=== PATIENT | male | born 1960 | race Caucasian/White ===

== ENCOUNTER 2018-10-06 11:19 | Emergency (ER) | payer BC ==
[2018-10-06] MEDS ORDERED: Albuterol/Ipratropium 3.0-0.5 MG/3 ML Neb Soln NEB ONE ×2 (11:25→11:47)
[2018-10-06] MEDS ORDERED: methylPREDNISolone Sodium Succinate 125 MG/2 ML SDV IM ONE (11:48)
--- NOTE | 2018-10-06 11:55 | EDM.PDOC ---
ED HPI GENERAL MEDICAL PROBLEM - General Chief Complaint: Respiratory Problem Stated Complaint: COUGH TROUBLE BREATHING Time Seen by Provider: 10/06/18 11:47 Source of Information: Reports: Patient History Limitations: Reports: No Limitations - History of Present Illness INITIAL COMMENTS - FREE TEXT/NARRATIVE: HISTORY AND PHYSICAL: History of present illness: Patient is a 58-year-old male who presents to the emergency room today with complaints of shortness of breath and cough 1 week. He states he has been using some leftover prednisone over the past 5 days along with his prescribed inhalers without any relief. Does have a long-standing history of asthma and does take inhalers several times per day. He denies any fever, chills, chest pain or diaphoresis. Denies any GI or symptoms. States he has been eating and drinking appropriately. Review of systems: As per history of present illness and below otherwise all systems reviewed and negative. Past medical history: As per history of present illness and as reviewed below otherwise noncontributory. Surgical history: As per history of present illness and as reviewed below otherwise noncontributory. Social history: See social history for further information Family history: As per history of present illness and as reviewed below otherwise noncontributory. Physical exam: General: Well-developed and well-nourished 58-year-old male. Alert and oriented. Nontoxic appearing and in no acute distress. HEENT: Atraumatic, normocephalic, pupils equal and reactive bilaterally, negative for conjunctival pallor or scleral icterus, mucous membranes moist, TMs normal bilaterally, throat clear, neck supple, nontender, trachea midline. No drooling or trismus noted. No meningeal signs. No hot potato voice noted. Lungs: Poor air exchange throughout with expiratory wheezing, breath sounds equal bilaterally, chest nontender. Heart: S1S2, regular rate and rhythm without overt murmur Abdomen: Soft, nondistended, nontender. Negative for masses or hepatosplenomegaly. Negative for costovertebral tenderness. Pelvis: Stable nontender. Genitourinary: Deferred. Rectal: Deferred. Skin: Intact, warm, dry. No lesions or rashes noted. Extremities: Atraumatic, moves all extremities per self without difficulty or deficits, negative for cords or calf pain. Neurovascular unremarkable. Neuro: Awake, alert, oriented. Cranial nerves II through XII unremarkable. Cerebellum unremarkable. Motor and sensory unremarkable throughout. Exam nonfocal. Notes: Improvement in lung sounds after the duo nebs. Chest x-ray shows a mild left basilar and perihilar atelectasis without definitive consolidation. Due to the patient's symptoms and history of chronic as melena treat her as a pneumonia. Patient states he will follow closely with his primary care provider. Supportive care measures were reviewed and discussed. Voices understanding and is agreeable to plan of care. Denies any further questions or concerns at this time. Diagnostics: CXR Therapeutics: Duo Neb x 2, Solu-Medrol IM, Rocephin Prescription: Medrol Dosepak Levaquin Impression: Atypical Pneumonia Plan: 1. Please take your medications as directed. 2. Your primary care provider as we discussed. Return to the ED as needed and as discussed. Definitive disposition and diagnosis as appropriate pending reevaluation and review of above. - Related Data Allergies Allergy/AdvReac Type Severity Reaction Status Date / Time No Known Allergies Allergy Verified 10/06/18 12:02 Home Meds: Home Meds . [Unable to Verify Home Med List] 10/06/18 [History] ED ROS GENERAL - Review of Systems Review Of Systems: ROS reveals no pertinent complaints other than HPI. ED EXAM, GENERAL - Physical Exam Exam: See Below (See dictation) Course - Vital Signs Last Recorded V/S: Last Vital Signs Temp 97.8 F 10/06/18 12:00 Pulse 86 10/06/18 12:00 Resp 18 10/06/18 12:00 BP 147/79 H 10/06/18 12:00 Pulse Ox 95 10/06/18 12:00 - Orders/Labs/Meds Orders: Active Orders 24 hr Category Date Time Status RT Aerosol Therapy [RC] ASDIRECTED Care 10/06/18 11:25 Active RT Aerosol Therapy [RC] ASDIRECTED Care 10/06/18 11:47 Active Meds: Medications Discontinued Medications Generic Name Dose Route Start Last Admin Trade Name Freq PRN Reason Stop Dose Admin Albuterol/Ipratropium 3 ml 10/06/18 11:25 10/06/18 11:42 Duoneb 3.0-0.5 Mg/3 Ml NEB 10/06/18 11:26 3 ml ONETIME ONE Administration Albuterol/Ipratropium 3 ml 10/06/18 11:47 10/06/18 11:50 Duoneb 3.0-0.5 Mg/3 Ml NEB 10/06/18 11:48 3 ml ONETIME ONE Administration Ceftriaxone Sodium 1 gm/ 4 mls @ 4 mls/sec 10/06/18 11:59 10/06/18 12:09 Lidocaine HCl IM 10/06/18 12:00 4 mls/sec ONETIME ONE Administration Methylprednisolone Sodium Succinate 125 mg 10/06/18 11:48 10/06/18 12:09 Solu-Medrol IM 10/06/18 11:49 125 mg ONETIME ONE Administration Departure - Departure Time of Disposition: 12:21 Disposition: Home, Self-Care 01 Clinical Impression: Pneumonia Qualifiers: Pneumonia type: due to unspecified organism Laterality: left Lung location: lower lobe of lung Qualified Code(s): J18.1 - Lobar pneumonia, unspecified organism - Discharge Information Instructions: Community-Acquired Pneumonia, Adult, [id number] Referrals: PCP,Unknown [Primary Care Provider] - Forms: ED Department Discharge Additional Instructions: The following information is given to patients seen in the emergency department who are being discharged to home. This information is to outline your options for follow-up care. We provide all patients seen in our emergency department with a follow-up referral. The need for follow-up, as well as the timing and circumstances, are variable depending upon the specifics of your emergency department visit. If you don't have a primary care physician on staff, we will provide you with a referral. We always advise you to contact your personal physician following an emergency department visit to inform them of the circumstance of the visit and for follow-up with them and/or the need for any referrals to a consulting specialist. The emergency department will also refer you to a specialist when appropriate. This referral assures that you have the opportunity for follow-up care with a specialist. All of these measure are taken in an effort to provide you with optimal care, which includes your follow-up. Under all circumstances we always encourage you to contact your private physician who remains a resource for coordinating your care. When calling for follow-up care, please make the office aware that this follow-up is from your recent emergency room visit. If for any reason you are refused follow-up, please contact the [facility] Emergency Department at and asked to speak to the emergency department charge nurse. [facility] [address] [place] [address] [facility] [address] [place] [address] 1. Please take your medications as directed. 2. Your primary care provider as we discussed. Return to the ED as needed and as discussed. - My Orders Last 24 Hours: My Active Orders 10/06/18 11:25 RT Aerosol Therapy [RC] ASDIRECTED 10/06/18 11:47 RT Aerosol Therapy [RC] ASDIRECTED - Assessment/Plan Last 24 Hours: My Active Orders 10/06/18 11:25 RT Aerosol Therapy [RC] ASDIRECTED 10/06/18 11:47 RT Aerosol Therapy [RC] ASDIRECTED
[2018-10-06] MEDS ORDERED: cefTRIAXone 1 GM in Lidocaine 1% 4 ML IM ONE (11:59)
--- NOTE | 2018-10-06 12:19 | CR ---
EXAMINATION: Two-view chest (PA and Lateral views). HISTORY: Shortness of breath. FINDINGS: The trachea is midline. The cardiomediastinal silhouette is within normal limits. No pulmonary infiltrates, effusions or pneumothorax. Mild left perihilar atelectasis and basilar atelectasis. Osseous structures appear unremarkable. IMPRESSION: Mild left basilar and perihilar atelectasis without a definite consolidation.
== END 2018-10-06 12:35 | disposition home or self-care (01) ==
LOC: MW.ED 11:19
DX: J18.1 Lobar pneumonia, unspecified organism (principal)
CPT/HCPCS: 71046; 94640; 96372; 99285; J0696; J2001; J2930; J7620-GY

== ENCOUNTER 2020-05-07 16:52 | Emergency (ER) | payer BC ==
--- NOTE | 2020-05-07 18:02 | EDM.PDOC ---
<Angelo Titus - Last Filed: 05/07/20 19:08> ED HPI GENERAL MEDICAL PROBLEM - General Chief Complaint: Respiratory Problem Stated Complaint: ASTHMATIC, TROUBLE BREATHING, COVID Time Seen by Provider: 05/07/20 16:53 Source of Information: Reports: Patient, Old Records History Limitations: Reports: No Limitations - History of Present Illness INITIAL COMMENTS - FREE TEXT/NARRATIVE: 59-year-old male with a past medical history of asthma, a provoked PE, hypertension presenting with infectious symptoms. He states that approximately 12 days ago, he tested positive for COVID-19. Since then, he has continued to feel unwell and run fevers. Today he had a T-max of 100.4. He complains of gradually worsening shortness of breath over about the past 36 hours. He was concerned that it was getting harder to breathe so he decided to come to the emergency department. He is concerned that he may be having an asthma exacerbation or he may have pneumonia. He denies any chest pain, pleuritic chest pain, sore throat, difficulty speaking or swallowing, difficulty in secretions, abdominal pain, dysuria, hematemesis, bloody stools, rash, lower extremity edema. Patient denies lower extremity pain or swelling, hemoptysis, recent surgery or immobilization or long travel, history of active malignancy, or hormonal medication/product usage. ROS: A 10-point review of systems was negative, except as noted in the HPI (or in the ROS section of this note). Past medical history: Reviewed, no additional pertinent history. Surgical history: Reviewed in system, no additional pertinent history. Social history: Reviewed in system, no additional pertinent history. Family history: Reviewed in system, no additional pertinent history. Limited physical examination was performed due to COVID pandemic, distanced physical examination to prevent physician exposure and to preserve PPE. Vital signs reviewed. Nursing notes reviewed. Constitutional: Awake, alert, non-distressed. Head: Normocephalic, atraumatic. Eyes: No scleral icterus. Neck: Able to fully flex and extend. Fully rotates side to side. Cardiovascular: No extremity edema. Pulmonary: normal work of breathing, no accessory muscle use. Speaking in full sentences, handling secretions well. CTA BL. Abdomen/GI: nondistended Musculoskeletal: No deformities. Integumentary: Appropriate color for ethnicity, warm, dry, no pallor or jaundice, no rash. Neurologic: Alert, answering questions appropriately, normal speech, no facial droop, moving all extremities well. Normal voice. Psychiatric: Appropriate mood and affect, normal thought process. This patient was seen and evaluated during the 2019 SARS-CoV-2 novel coronavirus pandemic period. Community viral transmission is ongoing at time of this encounter. - Related Data Allergies Allergy/AdvReac Type Severity Reaction Status Date / Time No Known Allergies Allergy Verified 05/07/20 17:10 Home Meds: Home Meds Amoxicillin/Potassium Clav [Augmentin 875-125 Tablet] 1 each PO BID 7 Days #14 tablet 05/07/20 [Rx] Doxycycline Hyclate 100 mg PO BID 5 Days #10 tablet. 05/07/20 [Rx] Past Medical History Cardiovascular History: Reports: Hypertension Respiratory History: Reports: Asthma - Infectious Disease History Infectious Disease History: Reports: Other (See Below) Other Infectious Disease History: COVID Social & Family History - Family History Family Medical History: Noncontributory - Caffeine Use Caffeine Use: Reports: None - Recreational Drug Use Recreational Drug Use: No ED ROS GENERAL - Review of Systems Review Of Systems: See Below ED EXAM, GENERAL - Physical Exam Exam: See Below #1 Interpretation EKG Interpretation Comments: 12-Lead ECG Interpretation Acquired: 5:59 PM Rhythm: Sinus rhythm Rate: 72 bpm [facility]: Normal Intervals: Normal Ectopy: None RV Strain: No obvious RV strain pattern. ST Segments/T-Waves: No notable changes Acute Ischemic Changes: None apparent Interpretation: No STEMI Course - Vital Signs Text/Narrative:: 59-year-old male, known COVID positive, presenting with fever, cough, feeling unwell, and gradually worsening shortness of breath. Patient hemodynamically stable, afebrile, well-appearing, looks nontoxic. Differential diagnosis includes but is not limited to: Persistent Covid infection, bacterial pneumonia, asthma exacerbation, less likely pulmonary embolism or acute coronary syndrome, anemia, electrode disturbance, arrhythmia, pleural effusion, etc. 6:00 PM: Normal oxygen saturations, normal heart rate. Speaking in full sen tences without difficulty. Lungs are clear to auscultation. Does not appear to be in an asthma exacerbation. Low suspicion for pneumonia but will obtain a chest x-ray given subjective worsening of dyspnea over the past 36 hours. No evidence of respiratory compromise. No chest discomfort but will obtain twelve- lead EKG and CBC, BMP, troponin. Low suspicion for pulmonary embolism given lack of pleuritic chest pain, he has no chest discomfort and has no lower extremity swelling, tachycardia, hypoxia, etc. Twelve-lead EKG nonischemic, no arrhythmia or ectopy. 6:37 PM: Chest x-ray shows a right lower lobe opacity concerning for pneumonia. Given that patient symptoms seem to have worsened over the past 36 hours, it is possible that he has concomitant community-acquired pneumonia on top of the previously known COVID-19 infection. We are going to prescribe him antibiotics to treat community-acquired pneumonia but continue quarantine precautions for known COVID-19. We are awaiting lab results. 7:08 PM: We are waiting for labs to come back. I am planning to treat the patient for commune acquired pneumonia. Dr. Monique is taking over the case and will follow up on the lab results. Departure - Departure Time of Disposition: 18:34 Disposition: Home, Self-Care 01 Condition: Good Clinical Impression: COVID-19 virus infection Community acquired pneumonia Qualifiers: Laterality: right Lung location: lower lobe of lung Qualified Code(s): J18.9 - Pneumonia, unspecified organism - Discharge Information *PRESCRIPTION DRUG MONITORING PROGRAM REVIEWED*: Not Applicable *COPY OF PRESCRIPTION DRUG MONITORING REPORT IN PATIENT [place]: Not Applicable Prescriptions: Amoxicillin/Potassium Clav [Augmentin 875-125 Tablet] 1 each PO BID 7 Days #14 tablet Doxycycline Hyclate 100 mg PO BID 5 Days #10 tablet. Instructions: COVID-19, COVID-19: How to Protect Yourself and Others - CDC, COVID-19 Frequently Asked Questions, Community-Acquired Pneumonia, Adult Referrals: Wayne Abdul MD [Primary Care Provider] - 1 Week (For follow-up of symptoms.) Forms: ED Department Discharge Additional Instructions: The need for follow-up, as well as the timing and circumstances, are variable depending upon the specifics of your emergency department visit. If you don't have a primary care physician on staff, we will provide you with a referral. We always advise you to contact your personal physician following an emergency department visit to inform them of the circumstance of the visit and for follow-up with them and/or the need for any referrals to a consulting specialist. The emergency department will also refer you to a specialist when appropriate. This referral assures that you have the opportunity for follow-up care with a specialist. All of these measure are taken in an effort to provide you with optimal care, which includes your follow-up. Under all circumstances we always encourage you to contact your private physician who remains a resource for coordinating your care. When calling for follow-up care, please make the office aware that this follow-up is from your recent emergency room visit. If for any reason you are refused follow-up, please contact the [facility] Emergency Department at and asked to speak to the emergency department charge nurse. If you do not have a primary care doctor, please follow up with the clinics below within 3-5 days. [facility] [address] [place] [address] [place] [address] Sepsis Event Note (ED) - Evaluation Sepsis Screening Result: No Definite Risk <Domenic Monique - Last Filed: 05/07/20 21:07> Course - Vital Signs Last Recorded V/S: Last Vital Signs Temp 97.9 F 05/07/20 17:11 Pulse 95 05/07/20 20:29 Resp 21 H 05/07/20 20:29 BP 146/77 H 05/07/20 17:11 Pulse Ox 96 05/07/20 20:29 - Orders/Labs/Meds Orders: Active Orders 24 hr Category Date Time Status Cardiac Monitoring [RC] . DIRECTED Care 05/07/20 19:18 Active EKG Documentation Completion [RC] STAT Care 05/07/20 17:48 Active Pulse Oximetry [RC] ASDIRECTED Care 05/07/20 17:48 Active CULTURE BLOOD [BC] Stat Lab 05/07/20 19:45 Received CULTURE BLOOD [BC] Stat Lab 05/07/20 20:00 Received PROCALCITONIN [REF] Stat Lab 05/07/20 18:45 Received Azithromycin [Zithromax] 500 mg Med 05/07/20 20:45 Active Sodium Chloride 0.9% [Normal Saline (AdvBag)] 250 ml IV ONETIME Blood Culture x2 Reflex Set [OM.PC] Stat Oth 05/07/20 19:23 Ordered Isolation [COMM] Stat Oth 05/07/20 19:18 Active Medication Orders Azithromycin 500 mg/ Sodium (Chloride) 250 mls @ 250 mls/hr IV ONETIME ONE Stop: 05/07/20 21:44 Last Admin: 05/07/20 21:01 Dose: 250 mls/hr Documented by: TERESITA Labs: Laboratory Tests 05/07/20 05/07/20 05/07/20 Range/Units 18:45 18:45 18:45 WBC 9.01 (4.0-11.0) K/uL RBC 4.32 L (4.50-5.90) M/uL Hgb 13.3 (13.0-17.0) g/dL Hct 40.2 (38.0-50.0) % MCV 93.1 (80.0-98.0) fL MCH 30.8 (27.0-32.0) pg MCHC 33.1 (31.0-37.0) g/dL RDW Std Deviation 43.5 (28.0-62.0) fl RDW Coeff of Kenzie 13 (11.0-15.0) % Plt Count 236 (150-400) K/uL MPV 9.40 (7.40-12.00) fL Neut % (Auto) 82.1 H (48.0-80.0) % Lymph % (Auto) 9.8 L (16.0-40.0) % Kleberg % (Auto) 7.9 (0.0-15.0) % Eos % (Auto) 0.0 (0.0-7.0) % Baso % (Auto) 0.2 (0.0-1.5) % Neut # (Auto) 7.4 H (1.4-5.7) K/uL Lymph # (Auto) 0.9 (0.6-2.4) K/uL Kleberg # (Auto) 0.7 (0.0-0.8) K/uL Eos # (Auto) 0.0 (0.0-0.7) K/uL Baso # (Auto) 0.0 (0.0-0.1) K/uL Nucleated RBC % 0.0 /100WBC Nucleated RBCs # 0 K/uL INR D-Dimer, Quantitative 0.45 (0.0-0.50) mg/L FEU Lactate (0.20-2.00) mmol/L Sodium 138 (136-148) mmol/L Potassium 4.9 (3.5-5.1) mmol/L Chloride 103 (98-107) mmol/L Carbon Dioxide 25.7 (21.0-32.0) mmol/L BUN 16 (7.0-18.0) mg/dL Creatinine 1.0 (0.8-1.3) mg/dL Est Cr Clr Drug Dosing 67.48 mL/min Estimated GFR (MDRD) > 60.0 ml/min Glucose 120 H (74-106) mg/dL Calcium 8.5 (8.5-10.1) mg/dL Total Bilirubin (0.2-1.0) mg/dL Direct Bilirubin (0.0-0.5) mg/dL Indirect Bilirubin AST (15-37) IU/L ALT (14-63) IU/L Alkaline Phosphatase (46-116) U/L Lactate Dehydrogenase (81-234) U/L Troponin I < 0.050 (0.000-0.056) ng/mL C-Reactive Protein (0.00-0.90) mg/dL Total Protein (6.4-8.2) g/dL Albumin (3.4-5.0) g/dL Globulin (2.6-4.0) g/dL Albumin/Globulin Ratio (0.9-1.6) 05/07/20 05/07/20 05/07/20 Range/Units 18:45 18:45 18:45 WBC (4.0-11.0) K/uL RBC (4.50-5.90) M/uL Hgb (13.0-17.0) g/dL Hct (38.0-50.0) % MCV (80.0-98.0) fL MCH (27.0-32.0) pg MCHC (31.0-37.0) g/dL RDW Std Deviation (28.0-62.0) fl RDW Coeff of Kenzie (11.0-15.0) % Plt Count (150-400) K/uL MPV (7.40-12.00) fL Neut % (Auto) (48.0-80.0) % Lymph % (Auto) (16.0-40.0) % Kleberg % (Auto) (0.0-15.0) % Eos % (Auto) (0.0-7.0) % Baso % (Auto) (0.0-1.5) % Neut # (Auto) (1.4-5.7) K/uL Lymph # (Auto) (0.6-2.4) K/uL Kleberg # (Auto) (0.0-0.8) K/uL Eos # (Auto) (0.0-0.7) K/uL Baso # (Auto) (0.0-0.1) K/uL Nucleated RBC % /100WBC Nucleated RBCs # K/uL INR 1.00 D-Dimer, Quantitative (0.0-0.50) mg/L FEU Lactate 1.2 (0.20-2.00) mmol/L Sodium (136-148) mmol/L Potassium (3.5-5.1) mmol/L Chloride (98-107) mmol/L Carbon Dioxide (21.0-32.0) mmol/L BUN (7.0-18.0) mg/dL Creatinine (0.8-1.3) mg/dL Est Cr Clr Drug Dosing mL/min Estimated GFR (MDRD) ml/min Glucose (74-106) mg/dL Calcium (8.5-10.1) mg/dL Total Bilirubin 0.4 (0.2-1.0) mg/dL Direct Bilirubin < 0.05 (0.0-0.5) mg/dL Indirect Bilirubin 0.86102 AST 26 (15-37) IU/L ALT 28 (14-63) IU/L Alkaline Phosphatase 32 L (46-116) U/L Lactate Dehydrogenase 274 H (81-234) U/L Troponin I (0.000-0.056) ng/mL C-Reactive Protein 7.10 H (0.00-0.90) mg/dL Total Protein 6.6 (6.4-8.2) g/dL Albumin 3.4 (3.4-5.0) g/dL Globulin 3.2 (2.6-4.0) g/dL Albumin/Globulin Ratio 1.1 (0.9-1.6) Meds: Medications Generic Name Dose Route Start Last Admin Trade Name Freq PRN Reason Stop Dose Admin Azithromycin 500 mg/ Sodium 250 mls @ 250 mls/hr 05/07/20 20:45 05/07/20 21:01 Chloride IV 05/07/20 21:44 250 mls/hr ONETIME ONE Administration Discontinued Medications Generic Name Dose Route Start Last Admin Trade Name Freq PRN Reason Stop Dose Admin Ceftriaxone Sodium 1 gm 05/07/20 19:22 05/07/20 20:50 Rocephin IVPUSH 05/07/20 19:23 Not Given ONETIME ONE Ceftriaxone Sodium/Dextrose Confirm 05/07/20 19:28 05/07/20 20:50 Rocephin In Dextrose,Iso-Osm 1 Gm/50 Ml Administered 05/07/20 19:29 Not Given Dose 50 mls @ as directed .ROUTE .STK-MED ONE Ceftriaxone Sodium/Dextrose 1 50 mls @ 100 mls/hr 05/07/20 19:29 05/07/20 20:58 gm/ Premix IV 05/07/20 19:58 100 mls/hr ONETIME ONE Administration - Re-Assessments/Exams Free Text/Narrative Re-Assessment/Exam: 05/07/20 1900 This patient was signed out to me from Dr. Titus at this time. I promptly performed a detailed physical examination, my examination was performed after ED treatments were initiated by the signout provider. Patient has been under the care of the previous provider up until this point. After prolonged observation in the ER, the patient improved and is currently stable for discharge. I performed a repeat exam and did not appreciate new abnor mal findings. Patient pulse ox was 96% on RA with ambulation. I advised the patient to return to the ER for reevaluation if symptoms worsened, including fever, worsening pain, or any other worrisome symptoms. I instructed the patient to follow up with their PCP within 2-3 days. MEDICAL DECISION MAKING: I reviewed the patients past medical records, lab and radiographic findings. I discussed the case with the patient. My differential diagnosis included: PE, PNA, COVID. This patient was evaluated for the symptoms described in the history of present illness. They were evaluated in the context of the global COVID-19 pandemic, which necessitated consideration that the patient might be at risk for infection with the SARS-CoV-2 virus that causes COVID-19. Institutional protocols and algorithms that pertain to the evaluation of patients at risk for COVID-19 are in a state of rapid change based on information released by regulatory bodies including the CDC and federal and state organizations. These policies and algorithms were followed during the patient's care. I wore full PPE, N95, face shield, gown and gloves throughout my evaluation and care of this patient. I recommended home isolation. given home isolation instructions. Patient was in no respiratory distress, not hypoxic, otherwise well appearing, amendable for outpatient treatment. I instructed patient to return immediately for worsening symptoms, sob, chest pain, lightheadedness or other concerns. Patient voiced understanding and questions answered. Sepsis Event Note (ED) - Focused Exam Vital Signs: Vital Signs Temp Pulse Resp BP Pulse Ox 05/07/20 20:29 95 21 H 96 05/07/20 17:11 97.9 F 80 20 146/77 H 96 - My Orders Last 24 Hours: My Active Orders 05/07/20 18:45 PROCALCITONIN [REF] Stat 05/07/20 19:18 Cardiac Monitoring [RC] . DIRECTED Isolation [COMM] Stat 05/07/20 19:23 Blood Culture x2 Reflex Set [OM.PC] Stat 05/07/20 19:45 CULTURE BLOOD [BC] Stat 05/07/20 20:00 CULTURE BLOOD [BC] Stat 05/07/20 20:45 Azithromycin [Zithromax] 500 mg Sodium Chloride 0.9% [Normal Saline (AdvBag)] 250 ml IV ONETIME - Assessment/Plan Last 24 Hours: My Active Orders 05/07/20 18:45 PROCALCITONIN [REF] Stat 05/07/20 19:18 Cardiac Monitoring [RC] . DIRECTED Isolation [COMM] Stat 05/07/20 19:23 Blood Culture x2 Reflex Set [OM.PC] Stat 05/07/20 19:45 CULTURE BLOOD [BC] Stat 05/07/20 20:00 CULTURE BLOOD [BC] Stat 05/07/20 20:45 Azithromycin [Zithromax] 500 mg Sodium Chloride 0.9% [Normal Saline (AdvBag)] 250 ml IV ONETIME
--- NOTE | 2020-05-07 18:27 | CR ---
INDICATION: COVID positive. Worsening dyspnea TECHNIQUE: Chest 1 views COMPARISON: October 06, 2018 FINDINGS: Cardiovascular and mediastinum: Heart size and vasculature are normal in caliber and appearance. Lungs and pleural spaces: Ill-defined pulmonary infiltrate in the right lower lobe. Remainder of the lungs and pleural spaces are clear. Bones and soft tissues: No significant findings. IMPRESSION: Right lower lobe pneumonia. Dictated by Sixto Barrett MD @ May 07 2020 6:23PM Signed by Dr. Sixto Barrett @ May 07 2020 6:24PM
[2020-05-07 19:19] LABS: BLOOD UREA NITROGEN,BUN 16 mg/dL (7.0-18.0); CARBON DIOXIDE,CO2 25.7 mmol/L (21.0-32.0); CHLORIDE,CL 103 mmol/L (98-107); GLUCOSE RANDOM 120 mg/dL (74-106); POTASSIUM,K 4.9 mmol/L (3.5-5.1); SODIUM,NA 138 mmol/L (136-148)
[2020-05-07] MEDS ORDERED: cefTRIAXone 1 GM Vial IVPUSH ONE (19:22)
[2020-05-07] MEDS ORDERED: cefTRIAXone 1 GM in Premix Bag 1 BAG IV ONE (19:29)
[2020-05-07] MEDS ORDERED: Azithromycin 500 MG in Sodium Chloride 0.9% 250 ML IV SCH (19:30)
[2020-05-07 19:50] LABS: BILIRUBIN INDIRECT 0.35001
[2020-05-07] MEDS ORDERED: Azithromycin 500 MG in Sodium Chloride 0.9% 250 ML IV ONE (20:45)
--- NOTE | 2020-05-07 20:53 | CT ---
HISTORY: Shortness of breath. History of prior pulmonary embolism. TECHNIQUE: Intravenous contrast enhanced CT of the chest. 100 mL of Isovue-370 intravenous contrast administered. COMPARISON: 01/15/2012. FINDINGS: There are patchy areas of ground-glass infiltrate within both lungs. There is also more confluent infiltrate within the right lower lobe. The appearance suspicious for infiltrates related to COVID-19. - There is less than optimal opacification of many subsegmental pulmonary arterial branches limiting evaluation for pulmonary embolism. There is no moderate or large pulmonary embolism. Mildly dilated ascending aorta measuring approximately 4.2 cm in diameter. No dissection. No significant pericardial effusion. - Interval enlargement of mediastinal lymph nodes in the paratracheal and subcarinal distributions compatible with adenopathy. There is mild hilar adenopathy bilaterally. - Degenerative changes of the thoracic spine. No acute thoracic fracture. IMPRESSION: 1. Patchy bilateral lung infiltrates suspicious for COVID-19. 2. Assessment of subsegmental pulmonary arterial branches is limited by less than optimal opacification of the pulmonary arterial circulation. No moderate or large pulmonary embolism. 3. New mediastinal and hilar adenopathy. While this could be reactive, follow-up is recommended. Dictated by Kingsley Clemente MD @ 05/07/2020 8:51:24 PM Please note that all CT scans at this facility use dose modulation, iterative reconstruction, and/or weight-based dosing when appropriate to reduce radiation dose to as low as reasonably achievable. Dictated by: Kingsley Clemente MD @ 05/07/2020 20:51:32 (Electronically Signed)
[2020-05-07] MEDS ORDERED: Iopamidol 755 Mg/ML 100 ML Bottle IVPUSH STA (22:01)
== END 2020-05-07 22:16 | disposition home or self-care (01) ==
LOC: MW.ED 16:52
DX: U07.1 COVID-19 (principal); J12.89 Other viral pneumonia; J45.909 Unspecified asthma, uncomplicated; I10 Essential (primary) hypertension; Z86.711 Personal history of pulmonary embolism
CPT/HCPCS: 36415; 71045; 71275; 80048; 80076; 83605; 83615; 84145; 84484; 85025; 85379; 85610; 86140; 87040; 93005; 96365; 96367; 99285; J0456; J0696; J7050; Q9967